=== PATIENT | female | born 1950 | race Two or more races ===

== ENCOUNTER 2019-01-03 06:53 | Day surgery (SDC) | payer OTHER ==
[~2019-01-03 06:53] MED LIST: CLONAZEPAM1 M1 PO; GABAPENTIN100 MG PO; GABAPENTIN300 MG PO; LEVO-T25 MCG PO; MONTELUKAST SOD10 MG; NOLVADEX10 MG PO
[2019-01-03] MEDS ORDERED: MACROBID 100 M100 MG PO (12:06)
[2019-01-03] MEDS ORDERED: ULTRACET PO (12:07)
== END 2019-01-03 16:55 | disposition home or self-care (01) ==
LOC: CIR.AMB 06:53
DX: N81.11 Cystocele, midline (principal); N81.6 Rectocele